=== PATIENT | male | born 1990 | race Caucasian/White ===

== ENCOUNTER 2019-09-25 12:52 | Emergency (ER) | payer OTHER ==
[~2019-09-25] VITALS: Ht 180.3 cm; Wt 87.3 kg
[2019-09-25 12:54] VITALS: BP 126/47
--- NOTE | 2019-09-25 13:40 | NUR ---
Pt states that he is able to eat regular food.
== END 2019-09-25 14:51 | disposition home or self-care (01) ==
LOC: ER 12:53
DX: J02.8 Acute pharyngitis due to other specified organisms (principal); B97.89 Other viral agents as the cause of diseases classified elsewhere; F12.90 Cannabis use, unspecified, uncomplicated; Z79.899 Other long term (current) drug therapy
CPT/HCPCS: 87081; 87880; 99283

== ENCOUNTER 2019-11-16 19:33 | Emergency (ER) | payer MEDICAID, OTHER ==
[~2019-11-16] VITALS: Ht 182.9 cm; Wt 75.0 kg
[2019-11-16] MEDS ORDERED: LOPE-190 PO (20:38)
[2019-11-16 20:50] VITALS: BP 124/74
== END 2019-11-16 20:51 | disposition home or self-care (01) ==
LOC: ER 19:34
DX: R19.7 Diarrhea, unspecified (principal); F12.90 Cannabis use, unspecified, uncomplicated; Z79.899 Other long term (current) drug therapy
CPT/HCPCS: 99282

== ENCOUNTER 2021-04-10 23:33 | Emergency (ER) | payer MEDICAID, OTHER ==
[~2021-04-10] VITALS: Ht 182.9 cm; Wt 81.8 kg
[~2021-04-10 23:33] MED LIST: LOPE-190 PO
[2021-04-10 23:58] VITALS: BP 106/66
[2021-04-11] MEDS ORDERED: bacitracin 15gm ointment TP ONE (01:30)
[2021-04-11] MEDS ORDERED: ondansetron 4mg rapidly disintigrating tab PO ONE (01:35)
[2021-04-11] MEDS ORDERED: amox tr/potassium clavulanate 875/125mg TAB PO ONE (01:35)
== END 2021-04-11 02:34 | disposition home or self-care (01) ==
LOC: ER 23:34
DX: S61.214A Laceration without foreign body of right ring finger without damage to nail, initial encounter (principal); S61.216A Laceration without foreign body of right little finger without damage to nail, initial encounter; W54.0XXA Bitten by dog, initial encounter; Y93.89 Activity, other specified; Y92.89 Other specified places as the place of occurrence of the external cause; Y99.8 Other external cause status
CPT/HCPCS: 12001; 99283